=== PATIENT | male | born 1990 | race Caucasian/White ===

== ENCOUNTER 2022-05-16 22:15 | Emergency (ER) | payer MEDICAID, OTHER ==
[~2022-05-16] VITALS: Ht 177.8 cm; Wt 90.7 kg
[2022-05-16] MEDS ORDERED: HALOPERIDOL LACTATE 5 MG/1 ML VIAL IM ONE (22:30)
[2022-05-16] MEDS ORDERED: IV NORMAL SALINE 1000 ML BAG IV ONE (22:30)
[2022-05-16] MEDS ORDERED: diphenhydrAMINE 50 MG/1 ML VIAL IM ONE (22:30)
[2022-05-16] MEDS ORDERED: LORAZEPAM 2 MG/1 ML VIAL IM ONE (22:30)
[2022-05-16] MEDS ORDERED: diphenhydrAMINE 50 MG/1 ML VIAL ONE (22:36)
[2022-05-16] MEDS ORDERED: HALOPERIDOL LACTATE 5 MG/1 ML VIAL ONE (22:36)
[2022-05-16] MEDS ORDERED: LORAZEPAM 2 MG/1 ML VIAL ONE (22:37)
[2022-05-17 00:02] LABS: HEMATOCRIT 43.3 % (36.7-47.1); MEAN CORPUSCULAR HEMOGLOBIN 31.2 uug (23.8-33.4); MEAN CORPUSCULAR VOLUME 89.3 fL (73.0-96.2); PLATELET COUNT (AUTO) 252 K/uL (152-348)
[2022-05-17 00:16] LABS: CARBON DIOXIDE 28 mmol/L (21-32); CHLORIDE 98 mmol/L (98-107); CREATININE 0.7 mg/dL (0.6-1.3); GLUCOSE 203 mg/dL (74-106); POTASSIUM 3.8 mmol/L (3.5-5.1); UREA NITROGEN, BLOOD 7 mg/dL (7-18)
[2022-05-17 00:17] LABS: *BILIRUBIN,URIN NEGATIVE (NEGATIVE); *CLARITY,URINE CLEAR (CLEAR); *COLOR,URINE YELLOW (YELLOW); *KETONES,URINE 2+ (NEGATIVE); *UROBILINOGEN,URINE 0.2 E.U./dl (NORMAL); LEUKOCYTE ESTERASE ,URINE NEGATIVE (NEGATIVE); NITRITE, URINE NEGATIVE (NEGATIVE); PH,URINE 6.5 (5.0-8.0); UGLUCOSE 2+ (NEGATIVE)
[2022-05-17 00:21] LABS: *BLOOD, URINE TRACE (NEGATIVE)
[2022-05-17 00:21] LABS: ETHANOL < 3 MG/DL (0-0)
[2022-05-17 00:25] LABS: ALANINE AMINOTRANSFERASE 42 U/L (16-63); ALKALINE PHOSPHATASE 37 U/L (50-136); ASPARTATE AMINOTRANSFERASE 21 U/L (15-37); BILIRUBIN,DIRECT 0.1 mg/dL (0.0-0.2); BILIRUBIN,TOTAL 0.3 mg/dL (0.2-1.0); TOTAL PROTEIN, SERUM 7.5 g/dL (6.4-8.2)
--- NOTE | 2022-05-17 00:30 | NUR ---
Patient cooperative with care.
[2022-05-17 00:32] LABS: *AMPHETAMINE, URINE NEGATIVE (NEGATIVE); *CANNABINOID, URINE NEGATIVE (NEGATIVE); *COCCAINE, URINE NEGATIVE (NEGATIVE); *OPIATE, URINE NEGATIVE (NEGATIVE); *PHENCYCLIDINE SCREEN,URINE NEGATIVE (NEGATIVE)
[2022-05-17 00:34] LABS: ACETAMINOPHEN < 2.0 ug/mL (10-30)
[2022-05-17 00:41] LABS: MAGNESIUM 1.7 mg/dL (1.8-2.4)
[2022-05-17] MEDS ORDERED: CYANOCOBALAMIN 1000 MCG/ML VIAL IM ONE (01:00)
[2022-05-17] MEDS ORDERED: CYANOCOBALAMIN 1000 MCG/ML VIAL ONE (01:22)
--- NOTE | 2022-05-17 02:44 | NUR ---
Patient sleeping but easily aroused when spoked to.
[2022-05-17 03:28] LABS: BACTERIA,URINE NONE SEEN /HPF (NONE SEEN); SQUAMOUS EPITHELIAL CELL,UR MODERATE /HPF (NONE SEEN)
[2022-05-17] MEDS ORDERED: MAGNESIUM SULFATE/D5W 100 ML ONE (06:28)
[2022-05-17] MEDS ORDERED: MAGNESIUM SULFATE/D5W 100 ML IV SCH (06:30)
[2022-05-17] MEDS ORDERED: LORAZEPAM 2 MG/1 ML VIAL ONE (06:32)
[2022-05-17] MEDS ORDERED: HALOPERIDOL LACTATE 5 MG/1 ML VIAL ONE (06:41)
[2022-05-17] MEDS ORDERED: diphenhydrAMINE 50 MG/1 ML VIAL ONE (06:41)
[2022-05-17] MEDS ORDERED: HALOPERIDOL LACTATE 5 MG/1 ML VIAL IM ONE (06:45)
[2022-05-17] MEDS ORDERED: LORAZEPAM 2 MG/1 ML VIAL IV ONE (06:45)
[2022-05-17] MEDS ORDERED: diphenhydrAMINE 50 MG/1 ML VIAL IM ONE (06:45)
[2022-05-17] MEDS ORDERED: LORAZEPAM 2 MG/1 ML VIAL IM ONE (06:45)
--- NOTE | 2022-05-17 07:00 | NUR ---
Report given to BRADLEY Call.
--- NOTE | 2022-05-17 08:30 | NUR ---
Pt sleeping in bed, No distress noted.
--- NOTE | 2022-05-17 09:10 | NUR ---
Replaced IV w/20g right AC. Pt had previously ripped out IV line at end of last shift.
--- NOTE | 2022-05-17 10:25 | NUR ---
Pt sleeping, no distress noted.
--- NOTE | 2022-05-17 13:00 | NUR ---
Pt states he is not SI, or HI, also no AH or VH. SW will attempt to make arrangements for d/c to family.
--- NOTE | 2022-05-17 15:42 | NUR ---
Social Work consult was requested for a patient in the emergency room for mental health resources. Patient is a 31-year-old male. Patient presents with depressed mood and congruent affect. Patient is alert and oriented X4. Patient states his primary contact is his mother, Kellie Ramos ([phone]) and he lives with her at [address] [place] [address]. Patient denies a history of substance abuse. The toxicology report is negative. Per MD report patient has a history of acute psychosis. Patient states he has a psychiatrist and is taking medication. Patient denies suicidal or homicidal ideation. Patient denies auditory or visual hallucinations. JOJO provided the patient and his family with mental health resources for [facility] [address] [place] [address] ([phone]). JOJO spoke to the patients mother, Kellie Ramos ([phone]), grandmother, and aunt at patients bedside about the importance of taking the medication prescribed by the patients psychiatrist. Patients mother Kellie Ramos ([phone]) will take the patient home to [address] [place] [address].
--- NOTE | 2022-05-17 15:58 | NUR ---
Saline Lock DC. Catheter intact and site benign. Pressure and 4x4 gauze applied to site. No bleeding noted.
--- NOTE | 2022-05-17 16:00 | NUR ---
Patient discharged to home in stable condition with family. Written and verbal after care instructions given. Patient and family verbalized understanding of instructions. Stressed follow up or return to ER for worsening s/s. Pt was seen by foster care social worker Mary Carmen and extensive ACI given by to pt and family prior to D/C as well.
== END 2022-05-17 16:12 | disposition home or self-care (01) ==
LOC: ER 22:18
DX: F23 Brief psychotic disorder (principal); E11.9 Type 2 diabetes mellitus without complications; E83.42 Hypomagnesemia; E53.8 Deficiency of other specified B group vitamins; F12.10 Cannabis abuse, uncomplicated; Z78.1 Physical restraint status; Z86.59 Personal history of other mental and behavioral disorders
CPT/HCPCS: 80076; 80048; 82607; 83036; 83735; 85025; 36415; 93005; 99285; 96361; 96372; 80299; 80320; 80307; 81001; 96365; 96375; J1200 ×2; J1630 ×2; J2060 ×2; J3420; J3475; J7040; A4663; C1758; G0480